=== PATIENT | male | born 1930 | race Caucasian/White ===

== ENCOUNTER 2016-12-16 21:18 | Emergency (ER) | payer MEDICARE ==
[2016-12-16] MEDS ORDERED: Aspirin Low Dose CHEW TAB* 81 MG PO ONE (21:38)
[2016-12-16] MEDS ORDERED: Aspirin Low Dose CHEW TAB* 81 MG ONE (21:39)
[2016-12-16 21:58] LABS: Hematocrit 41 % (42-52); Hemoglobin 13.6 g/dl (14.0-18.0); Mean Corpuscular HGB Conc 34 g/dl (31-36); Mean Corpuscular Hemoglobin 30 pg (27-31); Mean Corpuscular Volume 90 fL (80-94); Mean Platelet Volume 9 um3 (7.4-10.4); Red Cell Distribution Width 14 % (10.5-15)
[2016-12-16 22:14] LABS: BUN/Creatinine Ratio 24.7 (8-20); EGFR African American 49.2 (>60); EGFR Non-African American 38.2 (>60); Globulin 2.6 g/dL (2-4); Potassium 5.1 mmol/L (3.5-5.0); Total Bilirubin 0.4 mg/dL (0.2-1.0); Total Protein 6.6 g/dL (6.4-8.9); Troponin I 0.01 ng/mL (<0.04)
[2016-12-16] MEDS ORDERED: NS 0.9% 1000 ML* 1,000 ML IV ONE (22:16)
--- NOTE | 2016-12-16 22:19 | ED ---
I, Doctor,Rocío, scribed for Kelly Ghotra MD on 12/16/16 at 2134 . HPI Chest Pain - HPI Summary HPI Summary: 86 year old male arrived to [facility] c/o indigestion since 18:00 today. He reports that he began feeling sudden indigestion/chest discomfort at dinner, which he rated as a 4/10 at onset. His pain resolved spontaneously within 45 minutes. He also reports burping up "clear stuff," although his food all stayed down. He denies any diaphoresis or nausea. PT has PMHx of DM and [place], takes a full Asprin every night. His PCP is Dr. Romero. He lives with his ; non-smoker, non- drinker, no drug use. - History of Current Complaint Time Seen by Provider: 12/16/16 21:22 Hx Obtained From: Patient, EMS Onset/Duration: Started Hours Ago - onset at 18:00 today Timing: Lasting Hours - lasted approximately 1 hour Initial Severity: Moderate Current Severity: Moderate Pain Intensity: 4 Pain Scale Used: 0-10 Numeric Chest Pain Location: Mid Sternal Character: Other: - "clear stuff" came up when pt burped Alleviating Factor(s): Spontaneous Resolution Associated Signs and Symptoms: Positive: Chest Pain - chest pain/discomfort, Other: - "indigestion". Negative: Syncope, Fever, Diaphoresis, Nausea - Allergy/Home Medications Allergies/Adverse Reactions: Allergies Allergy/AdvReac Type Severity Reaction Status Date / Time Aloe Allergy Severe Rash Verified 12/19/15 18:52 Bacitracin [From Neosporin] Allergy Intermediate Rash Verified 12/19/15 18:52 Neomycin [From Neosporin] Allergy Intermediate Rash Verified 12/19/15 18:52 Penicillins Allergy Intermediate Rash Verified 12/19/15 18:52 Polymyxin B [From Neosporin] Allergy Intermediate Rash Verified 12/19/15 18:52 PMH/Surg Hx/FS Hx/Imm Hx Endocrine/Hematology History: Reports: Hx Diabetes Denies: Hx Thyroid Disease Cardiovascular History: Reports: Hx Hypertension, Hx Myocardial Infarction Denies: Hx Atrial Fibrillation, Hx Pacemaker/ICD Respiratory History: Denies: Hx Asthma, Hx Chronic Obstructive Pulmonary Disease (COPD) GI History: Denies: Hx Ulcer History: Denies: Hx Dialysis, Hx Renal Disease Musculoskeletal History: Reports: Hx Arthritis - HIPS, HANDS Sensory History: Reports: Hx Cataracts - BILATERAL, Hx Contacts or Glasses - GLASSES, Hx Hearing Aid Opthamlomology History: Reports: Hx Cataracts - BILATERAL, Hx Contacts or Glasses - GLASSES Psychiatric History: Denies: Hx Panic Disorder - Surgical History Surgery Procedure, Year, and Place: CAROTID ARTERY SURGERY(patched 2010 in outside op reports)TONSILS, CATARACTS BILATERAL Hx Anesthesia Reactions: No Infectious Disease History: Reports: Hx Shingles - long time ago Denies: Hx Clostridium Difficile, Hx Hepatitis, Hx Human Immunodeficiency Virus (HIV), Hx of Known/Suspected MRSA - Family History Known Family History: Positive: Other - no FHX of malignant hyperthermia or anesthesia reaction - Social History Lives: With Family - with Alcohol Use: Rare Alcohol Amount: MAYBE 1-2/YR Substance Use Type: Reports: None Smoking Status (MU): Former Smoker Type: Cigarettes Amount Used/How Often: 1PPD 40 YRS Have You Smoked in the Last Year: No Review of Systems Negative: Fever, Skin Diaphoresis Positive: Chest Pain - chest 'discomfort' Positive: Other - indigestion. Negative: Vomiting, Nausea Negative: Syncope All Other Systems Reviewed And Are Negative: Yes Physical Exam Triage Information Reviewed: Yes Vital Signs On Initial Exam: Initial Vitals Temp Pulse Resp BP Pulse Ox 99 F 81 17 139/63 97 12/16/16 21:34 12/16/16 21:34 12/16/16 21:34 12/16/16 21:34 12/16/16 21:34 Vital Signs Reviewed: Yes Appearance: Positive: Well-Appearing, No Pain Distress Skin: Positive: Warm, Skin Color Reflects Adequate Perfusion, Dry Eyes: Positive: EOMI, LEO ENT: Positive: Pharynx normal, TMs normal Neck: Positive: Supple, Nontender Respiratory/Lung Sounds: Positive: Clear to Auscultation, Breath Sounds Present. Negative: Rales, Rhonchi, Wheezes Cardiovascular: Positive: RRR. Negative: Murmur, Rub Abdomen Description: Positive: Nontender, Soft. Negative: Distended, Guarding Bowel Sounds: Positive: Present Musculoskeletal: Positive: Strength/ROM Intact. Negative: Edema Left, Edema Right Neurological: Positive: Sensory/Motor Intact, Alert, Oriented to Person Place, Time, CN Intact II-III Psychiatric: Positive: Normal, Affect/Mood Appropriate Diagnostics - Vital Signs Vital Signs Temp Pulse Resp BP Pulse Ox 12/16/16 21:34 99 F 81 17 139/63 97 - Laboratory Lab Results: Lab Results 12/16/16 12/16/16 12/16/16 Range/Units 21:50 21:50 21:50 WBC 9.0 (3.5-10.8) 10^3/ul RBC 4.50 (4.0-5.4) 10^6/ul Hgb 13.6 L (14.0-18.0) g/dl Hct 41 L (42-52) % MCV 90 (80-94) fL MCH 30 (27-31) pg MCHC 34 (31-36) g/dl RDW 14 (10.5-15) % Plt Count 198 (150-450) 10^3/ul MPV 9 (7.4-10.4) um3 Neut % (Auto) 79.1 (38-83) % Lymph % (Auto) 13.0 L (25-47) % Hardin % (Auto) 5.6 (1-9) % Eos % (Auto) 1.5 (0-6) % Baso % (Auto) 0.8 (0-2) % Absolute Neuts (auto) 7.1 (1.5-7.7) 10^3/ul Absolute Lymphs (auto) 1.2 (1.0-4.8) 10^3/ul Absolute Monos (auto) 0.5 (0-0.8) 10^3/ul Absolute Eos (auto) 0.1 (0-0.6) 10^3/ul Absolute Basos (auto) 0.1 (0-0.2) 10^3/ul Absolute Nucleated RBC 0 10^3/ul Nucleated RBC % 0 Sodium 134 (133-145) mmol/L Potassium 5.1 H (3.5-5.0) mmol/L Chloride 103 (101-111) mmol/L Carbon Dioxide 23 (22-32) mmol/L Anion Gap 8 (2-11) mmol/L BUN 42 H (6-24) mg/dL Creatinine 1.70 H (0.67-1.17) mg/dL Est GFR ( Amer) 49.2 (>60) Est GFR (Non-Af Amer) 38.2 (>60) BUN/Creatinine Ratio 24.7 H (8-20) Glucose 224 H (70-100) mg/dL Lactic Acid 1.8 (0.5-2.0) mmol/L Calcium 10.0 (8.6-10.3) mg/dL Total Bilirubin 0.40 (0.2-1.0) mg/dL AST 16 (13-39) U/L ALT 31 (7-52) U/L Alkaline Phosphatase 87 (34-104) U/L Troponin I 0.01 (<0.04) ng/mL Total Protein 6.6 (6.4-8.9) g/dL Albumin 4.0 (3.2-5.2) g/dL Globulin 2.6 (2-4) g/dL Albumin/Globulin Ratio 1.5 (1-3) Result Diagrams: 12/16/16 21:50 12/16/16 21:50 Lab Statement: Any lab studies that have been ordered have been reviewed, and results considered in the medical decision making process. - EKG 21:22 Cardiac Rate: NL - 83 bpm EKG Rhythm: Sinus Rhythm - normal Ectopy: None EKG Interpretation: inferior Qs, otherwise normal Chest Pain Course/Dx - Course Course Of Treatment: 86 yo male with chest discomfort and one time burp/ spitting up at 530 tonight. First trop and ekg normal, pt not willing to come in for obv will get 2nd trop at 1130 - Diagnoses Provider Diagnoses: Chest pain Discharge - Discharge Plan Condition: Stable Disposition: OTHER Discharge Disposition Comment: final disposition to be decided by Dr. Vera The documentation as recorded by the altaibDoctor campuzano Tahera accurately reflects the service I personally performed and the decisions made by me, Kelly Ghotra MD.
--- NOTE | 2016-12-16 22:25 | RAD ---
INDICATION: Chest pain COMPARISON: None 2011 TECHNIQUE: An AP portable view obtained at 2155 hours is submitted. FINDINGS: Bones/Soft Tissues: There are no acute bony findings. Cardiomediastinal: The cardiomediastinal silhouette is normal. Lungs: There are no infiltrates. There is mild chronic basilar interstitial change Pleura: There are no pleural effusions. Other: None IMPRESSION: NO ACTIVE DISEASE.
[2016-12-17 00:33] VITALS: BP 134/70
--- NOTE | 2016-12-17 20:00 | ED ---
I, Shanu Mckenzie, scribed for Micky Vera MD on 12/17/16 at 0015 . Progress - Progress Note Progress Note: Patient was signed out by Dr. Ghotra at shift change pending second troponin. The patient and family are unwilling to have the patient stay overnight for observation. They will sign out AMA. - Results/Orders Results/Orders: Trop 0.01 at 23:05 is 0.01. Re-Evaluation - Re-Evaluation First Eval Re-Evaluation Time: 00:15 Comment: Risks and benefits of leaving AMA discussed with the patient and family. Labs reviewed. Patient states that his pain resolved 2 hours ago and had not returned. Course/Dx - Course Course Of Treatment: Patient was signed out by Dr. Ghotra at shift change pending second troponin. The patient and family are unwilling to have the patient stay overnight for observation. They will sign out AMA. The risks of doing so were discussed in great detail with the patient and family, but they have elected to do so anyway. - Diagnoses Provider Diagnoses: Chest pain, unspecified, Left against medical advice Discharge - Discharge Plan Condition: Stable Disposition: AGAINST MEDICAL ADVICE Patient Education Materials: Chest Pain (ED) Referrals: Stephany Cobos [Primary Care Provider] - The documentation as recorded by the Jonah zaragoza Billy accurately reflects the service I personally performed and the decisions made by , Micky Vera MD.
--- NOTE | 2016-12-19 15:39 | ED ---
I, Rocío Galvez, scribed for Kelly Ghotra MD on 12/16/16 at 2234 . Progress - Progress Note Progress Note: First Re-Eval at 22:30 - Informed pt of lab results and discussed plan of care with him. - Results/Orders Results/Orders: 21:50 - Troponin I - 0.01 - EKG/XRAY/CT XRAY: chest - Radiologist IMPRESSION: NO ACTIVE DISEASE. Course/Dx - Course Course Of Treatment: 86 yo male with chest discomfort and one time burp/ spitting up at 530 tonight. First trop and ekg normal, pt not willing to come in for obv will get 2nd trop at 1130 - Diagnoses Provider Diagnoses: Chest pain The documentation as recorded by the scribe, Rocío Galvez accurately reflects the service I personally performed and the decisions made by me, Kelly Ghotra MD.
== END 2016-12-17 00:36 | disposition left against medical advice (07) ==
LOC: ED 21:18
DX: R07.9 Chest pain, unspecified (principal); Z53.21 Procedure and treatment not carried out due to patient leaving prior to being seen by health care provider
CPT/HCPCS: 36415; 71010; 80053; 83605; 84484; 85025; 93005; 99283; A9270-GY

== ENCOUNTER 2017-10-17 04:46 | Emergency (ER) | payer MEDICARE ==
--- OUTSIDE RECORDS SUMMARY | 2017-10-17 04:52 | XMS REPORT ---
:1930 External Reference #:[id number] Author Organization [facility] Address [address] [place] [address] Phone [phone] Care Team Providers Name Role Phone Diya Nieves M.D. 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 Active Onset: 01/02/2011 Pure hypercholesterolemia Addy Francois M.D. Active Onset: 01/02/2011 Essential hypertension Addy Francois M.D. Active Family History Date Family Member(s) Problem(s) Comments : (age 83 Years) Father due to Natural Causes : (age 65 Years) Mother due to Heart Disease cancer Social History Type Date Description Comments ETOH Use Rarely consumes alcohol Smoking 1979 Patient is a former smoker Smoked 1ppd and cigars for 35 yrs Recreational Drug Use Never Used Drugs Allergies, Adverse Reactions, Alerts Date Description Reaction Status Severity Comments 01/02/2011 Penicillin rash active 01/02/2011 Neosporin rash active 01/02/2011 Polysporin rash active 01/29/2011 Clams rash active 07/01/2014 Aloe Contact dermatitis active Medications Medication Date Status Form Strength Qnty SIG Indications Ordering Provider Joseph / Active Solution 100Unit/ML 40-60 Unknown 0000 units as directed Metoprolol / Active Tablets 25mg 1/2 tab Unknown Tartrate 0000 bid Aspirin Ec / Active Tablets DR 325mg qd Unknown 0000 Tamsulosin HCL / Active Capsules 0.4mg qd Unknown 0000 Tylenol / Active Tablets ER 650mg prn Unknown Arthritis Pain 0000 Meclizine HCL / Active Tablets 25mg 1/2 Unknown 0000 tablet at hs Fluticasone / Active Suspension 50mcg/Act 2 sprays Unknown Propionate 0000 qd Finasteride / Active Tablets 5mg qd Unknown 0000 Areds / Active 2 tablets Unknown 0000 qd Atorvastatin / Active Tablets 10mg qd Unknown Calcium 0000 Vitamin D / Active Tablets 1000Unit qd Unknown 0000 Benefiber / Active qd Unknown 0000 Victoza / Active Solution 18mg/3ML qd Unknown 0000 Pen-Inject Metformin HCL / Active Tablets 1000mg qd Unknown 0000 Doxycycline / Active Capsules 100mg qod Unknown Hyclate 0000 Nitrostat / Active Tablets Sub 0.4mg as needed Unknown 0000 Hydrocodone-Ignacio / Active Tablets 5-325mg as needed Unknown taminophen 0000 Invokana / Active Tablets 300mg 1 Unknown 0000 Vesicare / Active Tablets 5mg 1 by Unknown 0000 mouth every night at bedtime Zofran / Active Tablets 4mg every 8 Unknown 0000 hours as needed, nausea Amlodipine / Active Capsules 10-40mg 1 by Unknown Besylate/Benaze 0000 mouth pril HCL every day Cetirizine HCL / Active Tablets 10mg 1 by Unknown 0000 mouth every day Diclofenac / Active gel qd Unknown Sodium 0000 Lipoflavonoid / Active Tablets with Unknown 0000 meals Glyburide/Metfo / Hx Tablets 5-500mg 1 am and Unknown rmin HCL 0000 - 2 pm 2013 Caduet / Hx Tablets 5-10mg qd Unknown 0000 - 2011 Pepcid ac / Hx Tablets 10mg prn Unknown 0000 - 2015 Plavix / Hx Tablets 75mg 30tab 1 po qd Unknown 0000 - s 2010 Amlodipine 00/00/ Hx Tablets 5mg 30tab qd Unknown Besylate 0000 - s 2015 Aleve 00/00/ Hx Tablets 220mg 2 tablets Unknown 0000 - am 2015 Vital Signs Date Vital Result Comment 08/28/2017 BP Systolic Right Arm 122 mmHg BP Diastolic Right Arm 60 mmHg Height 66 inches 5'6" 08/23/2016 BP Systolic Right Arm 150 mmHg BP Diastolic Right Arm 70 mmHg BP Systolic Left Arm 150 mmHg BP Diastolic Left Arm 70 mmHg Height 66 inches 5'6" Weight 207.00 lb Weight in kg's 93.895 BMI (Body Mass Index) 33.4 kg/m2 Pain Level 0 08/17/2015 BP Systolic Right Arm 120 mmHg BP Diastolic Right Arm 80 mmHg BP Systolic Left Arm 120 mmHg BP Diastolic Left Arm 80 mmHg Height 67 inches 5'7" Weight 207.00 lb Weight in kg's 93.895 BMI (Body Mass Index) 32.4 kg/m2 Pain Level 0 07/01/2014 BP Systolic Right Arm 120 mmHg BP Diastolic Right Arm 60 mmHg BP Systolic Left Arm 130 mmHg BP Diastolic Left Arm 60 mmHg Height 67 inches 5'7" Weight 230.00 lb Weight in kg's 104.328 BMI (Body Mass Index) 36.0 kg/m2 Pain Level 0 06/25/2013 BP Systolic Right Arm 180 mmHg BP Diastolic Right Arm 80 mmHg BP Systolic Left Arm 180 mmHg BP Diastolic Left Arm 80 mmHg Weight 230.00 lb Weight in kg's 104.328 Pain Level 5 04/23/2012 BP Systolic Right Arm 130 mmHg BP Diastolic Right Arm 60 mmHg BP Systolic Left Arm 130 mmHg BP Diastolic Left Arm 60 mmHg Height 67 inches 5'7" Weight 230.00 lb Weight in kg's 104.328 BMI (Body Mass Index) 36.0 kg/m2 Pain Level 0 10/04/2011 BP Systolic Right Arm 170 mmHg BP Diastolic Right Arm 90 mmHg BP Systolic Left Arm 190 mmHg BP Diastolic Left Arm 90 mmHg Height 67 inches 5'7" Weight 230.00 lb Weight in kg's 104.328 BMI (Body Mass Index) 36.0 kg/m2 03/28/2011 BP Systolic Right Arm 190 mmHg BP Diastolic Right Arm 80 mmHg BP Systolic Left Arm 180 mmHg BP Diastolic Left Arm 70 mmHg Height 67 inches 5'7" Weight 230.00 lb Weight in kg's 104.328 BMI (Body Mass Index) 36.0 kg/m2 02/08/2011 BP Systolic Left Arm 150 mmHg BP Diastolic Left Arm 70 mmHg Heart Rate 78 /min Height 66 inches 5'6" Weight 230.00 lb Weight in kg's 104.328 BMI (Body Mass Index) 37.1 kg/m2 01/11/2011 BP Systolic Right Arm 134 mmHg BP Diastolic Right Arm 70 mmHg Heart Rate 62 /min Height 66 inches 5'6" Weight 230.00 lb Weight in kg's 104.328 BMI (Body Mass Index) 37.1 kg/m2 01/02/2011 BP Systolic Right Arm 150 mmHg BP Diastolic Right Arm 70 mmHg BP Systolic Left Arm 140 mmHg BP Diastolic Left Arm 70 mmHg Heart Rate 68 /min Height 66 inches 5'6" Weight 230.00 lb Weight in kg's 104.328 BMI (Body Mass Index) 37.1 kg/m2 Results Test Date Test Result H/L Range Note Xray 08/28/2017 Carotid Ultrasound Bilateral <pending> Xray 01/02/2011 Cta Head <pending> Cta Neck <pending> Procedures Date CPT Code Description Status 08/28/2017 36848 Duplex Scan Extracranial Arteries, Complete Bilateral Completed Study 08/23/2016 78020 Duplex Scan Extracranial Arteries, Complete Bilateral Completed Study 08/17/2015 58737 Duplex Scan Extracranial Arteries, Complete Bilateral Completed Study 07/01/2014 08036 Duplex Scan Extracranial Arteries, Complete Bilateral Completed Study 06/25/2013 85256 Duplex Scan Extracranial Arteries, Complete Bilateral Completed Study 04/23/2012 98865 Duplex Scan Extracranial Arteries, Complete Bilateral Completed Study 10/04/2011 59122 Duplex Scan Extracranial Arteries, Complete Bilateral Completed Study 03/28/2011 42380 Duplex Scan Extracranial Arteries, Complete Bilateral Completed Study 01/25/2011 40022 Thromboendarterectomy Carotid/Vertebral/Subclav By Neck Completed Incision Encounters Type Date Location Provider CPT E/M Dx Office Visit 08/23/2016 10:30a Main Office Estela Etienne 35534 I65.23 Z48.812 Office Visit 08/17/2015 12:30p Main Office Kristy Guidry N.P. [id number] I65.23 Office Visit 01/11/2011 11:00a Main Office Addy Francois M.D. 75982 433.10 Office Visit 01/02/2011 2:30p Main Office Addy Francois M.D. 80610 433.10 Plan of Care Future Appointment(s):08/28/2018 10:30 am - Addy Francois M.D. at Main Kbumda0208/28/2018 10:00 am - Vascular Lab at Main Lnelir8408/28/2017 - Addy Francois M.D.Z48.812 [facility]:Carotid Ultrasound RightFollow up:1 YEAR OV/US/ CAROTID RIGHT/
[2017-10-17] MEDS ORDERED: Pantoprazole IV* 40 MG IV ONE (05:27)
[2017-10-17] MEDS ORDERED: Al Hydrox/Mg Hydrox/Simet LIQ* 30 ML UDC PO ONE (05:27)
[2017-10-17] MEDS ORDERED: Lidocaine 2% VISCOUS* 15 ML UDC PO ONE (05:28)
[2017-10-17 05:45] LABS: ABS Basophils 0 10^3/ul (0-0.2); ABS Eosinophils 0.1 10^3/ul (0-0.6); ABS Monocytes 0.7 10^3/ul (0-0.8); ABS Neutrophils 8.5 10^3/ul (1.5-7.7); ABS Nucleated RBC 0 10^3/ul; Eosinophil % 0.8 % (0-6); Hematocrit 38 % (42-52); Hemoglobin 12.7 g/dl (14.0-18.0); Mean Corpuscular HGB Conc 33 g/dl (31-36); Mean Corpuscular Hemoglobin 31 pg (27-31); Mean Corpuscular Volume 93 fL (80-94); Mean Platelet Volume 9 um3 (7.4-10.4); Nucleated Red Blood Cells % 0; Platelet Count 209 10^3/ul (150-450); Red Blood Count 4.13 10^6/ul (4.0-5.4); Red Cell Distribution Width 14 % (10.5-15); White Blood Count 10.3 10^3/ul (3.5-10.8)
[2017-10-17] MEDS ORDERED: Ondansetron INJ* 2 MG/ML VIAL ONE (05:49)
[2017-10-17] MEDS ORDERED: Ondansetron INJ* 2 MG/ML VIAL IV ONE (05:51)
[2017-10-17 06:02] LABS: EGFR Non-African American 34.2 (>60)
[2017-10-17 06:06] LABS: INR 0.84 (0.77-1.02)
--- NOTE | 2017-10-17 07:09 | ED ---
Magalie Norton Gabriel, scribed for Usama Winston MD on 10/17/17 at 0541 . HPI Chest Pain - HPI Summary HPI Summary: This patient is a 86 year old M BIBA to [facility] accompanied by his family with a chief complaint of CP since 1916 yesterday. The patient rates the constant pain 2/10 in severity. Patient reports burping. Patient denies n/v/d and diaphoresis. Pt states he feels like he needs to burp. He had similar episode a week ago for a few hours and it went away. Takes ASA daily. Hx of MD 1992. Given ASA and NTG by EMS. - History of Current Complaint Chief Complaint: EDChestPainROMI Time Seen by Provider: 10/17/17 04:59 Hx Obtained From: Patient Onset/Duration: Still Present Timing: Constant Pain Intensity: 2 Pain Scale Used: 0-10 Numeric Chest Pain Location: Diffuse Chest Pain Radiates: No Associated Signs and Symptoms: Negative: Diaphoresis, Nausea - Allergy/Home Medications Allergies/Adverse Reactions: Allergies Allergy/AdvReac Type Severity Reaction Status Date / Time MS Aloe [Aloe] Allergy Severe Rash Verified 12/19/15 18:52 MS Bacitracin Allergy Intermediate Rash Verified 12/19/15 18:52 [From Neosporin] MS Neomycin [From Neosporin] Allergy Intermediate Rash Verified 12/19/15 18:52 MS Penicillins [Penicillins] Allergy Intermediate Rash Verified 12/19/15 18:52 MS Polymyxin B Allergy Intermediate Rash Verified 12/19/15 18:52 [From Neosporin] PMH/Surg Hx/FS Hx/Imm Hx Endocrine/Hematology History: Reports: Hx Diabetes Denies: Hx Thyroid Disease Cardiovascular History: Reports: Hx Hypertension, Hx Myocardial Infarction Denies: Hx Atrial Fibrillation, Hx Pacemaker/ICD Respiratory History: Denies: Hx Asthma, Hx Chronic Obstructive Pulmonary Disease (COPD) GI History: Denies: Hx Ulcer History: Denies: Hx Dialysis, Hx Renal Disease Musculoskeletal History: Reports: Hx Arthritis - HIPS, HANDS Sensory History: Reports: Hx Cataracts - BILATERAL, Hx Contacts or Glasses - GLASSES, Hx Hearing Aid Opthamlomology History: Reports: Hx Cataracts - BILATERAL, Hx Contacts or Glasses - GLASSES Psychiatric History: Denies: Hx Panic Disorder - Surgical History Surgery Procedure, Year, and Place: CAROTID ARTERY SURGERY(patched 2011 in outside op reports)TONSILS, CATARACTS BILATERAL Hx Anesthesia Reactions: No Infectious Disease History: No Infectious Disease History: Reports: Hx Shingles - long time ago Denies: Hx Clostridium Difficile, Hx Hepatitis, Hx Human Immunodeficiency Virus (HIV), Hx of Known/Suspected MRSA, Traveled Outside the [place] in Last 30 Days - Family History Known Family History: Positive: Cardiac Disease, Hypertension, Other - no FHX of malignant hyperthermia or anesthesia reaction - Social History Alcohol Use: Rare Alcohol Amount: MAYBE 1-2/YR Substance Use Type: Reports: None Smoking Status (MU): Former Smoker Type: Cigarettes Amount Used/How Often: 1PPD 40 YRS Have You Smoked in the Last Year: No Review of Systems Negative: Skin Diaphoresis Positive: Chest Pain Negative: Vomiting, Diarrhea, Nausea All Other Systems Reviewed And Are Negative: Yes Physical Exam - Summary Physical Exam Summary: VITAL SIGNS: Reviewed. GENERAL: Patient is a well-developed and nourished male who is lying comfortable in the stretcher. Patient is not in any acute respiratory distress. HEAD AND FACE: No signs of trauma. No ecchymosis, hematomas or skull depressions. No sinus tenderness. EYES: PERRLA, EOMI x 2, No injected conjunctiva, no nystagmus. EARS: Ear canals and tympanic membranes are within normal limits. MOUTH: Oropharynx within normal limits. NECK: Supple, trachea is midline, no adenopathy, no JVD, no carotid bruit, no c- spine tenderness, neck with full ROM. CHEST: Symmetric, no tenderness at palpation LUNGS: Clear to auscultation bilaterally. No wheezing or crackles. CVS: Regular rate and rhythm, S1 and S2 present, no murmurs or gallops appreciated. ABDOMEN: Soft, non-tender. No signs of distention. No rebound no guarding, and no masses palpated. Bowel sounds are normal. EXTREMITIES: FROM in all major joints, no edema, no cyanosis or clubbing. NEURO: Alert and oriented x 3. No acute neurological deficits. Speech is normal and follows commands. SKIN: Dry and warm Triage Information Reviewed: Yes Vital Signs On Initial Exam: Initial Vitals Temp Pulse Resp BP Pulse Ox 98.1 F 91 18 137/64 97 10/17/17 04:53 10/17/17 04:53 10/17/17 04:53 10/17/17 04:53 10/17/17 04:53 Vital Signs Reviewed: Yes Diagnostics - Vital Signs Vital Signs Temp Pulse Resp BP Pulse Ox 10/17/17 04:53 98.1 F 91 18 137/64 97 - Laboratory Lab Results: Lab Results 10/17/17 10/17/17 10/17/17 Range/Units 05:05 05:05 05:05 WBC 10.3 (3.5-10.8) 10^3/ul RBC 4.13 (4.0-5.4) 10^6/ul Hgb 12.7 L (14.0-18.0) g/dl Hct 38 L (42-52) % MCV 93 (80-94) fL MCH 31 (27-31) pg MCHC 33 (31-36) g/dl RDW 14 (10.5-15) % Plt Count 209 (150-450) 10^3/ul MPV 9 (7.4-10.4) um3 Neut % (Auto) 82.5 (38-83) % Lymph % (Auto) 10.0 L (25-47) % [place] % (Auto) 6.4 (1-9) % Eos % (Auto) 0.8 (0-6) % Baso % (Auto) 0.3 (0-2) % Absolute Neuts (auto) 8.5 H (1.5-7.7) 10^3/ul Absolute Lymphs (auto) 1.0 (1.0-4.8) 10^3/ul Absolute Monos (auto) 0.7 (0-0.8) 10^3/ul Absolute Eos (auto) 0.1 (0-0.6) 10^3/ul Absolute Basos (auto) 0 (0-0.2) 10^3/ul Absolute Nucleated RBC 0 10^3/ul Nucleated RBC % 0 INR (Anticoag Therapy) 0.84 (0.77-1.02) APTT 30.5 (26.0-36.3) seconds Sodium 137 (133-145) mmol/L Potassium 5.0 (3.5-5.0) mmol/L Chloride 110 (101-111) mmol/L Carbon Dioxide 19 L (22-32) mmol/L Anion Gap 8 (2-11) mmol/L BUN 47 H (6-24) mg/dL Creatinine 1.87 H (0.67-1.17) mg/dL Est GFR ( Amer) 44.0 (>60) Est GFR (Non-Af Amer) 34.2 (>60) BUN/Creatinine Ratio 25.1 H (8-20) Glucose 188 H (70-100) mg/dL Calcium 9.3 (8.6-10.3) mg/dL Magnesium 2.2 (1.9-2.7) mg/dL Total Bilirubin 0.40 (0.2-1.0) mg/dL AST 15 (13-39) U/L ALT 16 (7-52) U/L Alkaline Phosphatase 94 (34-104) U/L Troponin I 0.01 (<0.04) ng/mL Total Protein 6.3 L (6.4-8.9) g/dL Albumin 3.9 (3.2-5.2) g/dL Globulin 2.4 (2-4) g/dL Albumin/Globulin Ratio 1.6 (1-3) Result Diagrams: 10/17/17 05:05 10/17/17 05:05 Lab Statement: Any lab studies that have been ordered have been reviewed, and results considered in the medical decision making process. - Radiology CXR Radiology Interpretation Completed By: ED Physician - EKG 0501 Cardiac Rate: NL EKG Rhythm: Sinus Rhythm - at 83 BPM EKG Interpretation: Normal axis. Normal interval. No ischemic changes Chest Pain Course/Dx - Course Assessment/Plan: This patient is a 86 year old M BIBA to [facility] accompanied by his family with a chief complaint of CP since 1915 yesterday. The patient rates the constant pain 2/10 in severity. Patient reports burping. Patient denies n/v/ d and diaphoresis. Pt states he feels like he needs to burp. He had similar episode a week ago for a few hours and it went away. Takes ASA daily. Hx of MD 1992. Given ASA and NTG by EMS. An EKG reveals Normal axis. Normal interval. No ischemic changes. CXR reveals, no acute process. Test results with no significant abnormalities. In the ED course the patient was given GI cocktail. Patient is signed out to Dr. Villalta, pending disposition, awaiting troponin. - Diagnoses Provider Diagnoses: Chest pain Discharge - Discharge Plan Condition: Stable Disposition: OTHER Discharge Disposition Comment: Pt will be signed out to Dr. Villalta Referrals: Stephany Cobos [Primary Care Provider] - The documentation as recorded by the Magalie zaragoza Gabriel accurately reflects the service I personally performed and the decisions made by me, Usama Winston MD.
--- NOTE | 2017-10-17 07:21 | RAD ---
INDICATION: Chest pain COMPARISON: most recent comparison chest x-rays dated December 16, 2016 TECHNIQUE: Single AP portable view of the chest was obtained. FINDINGS: Image quality is compromised due to the relative inferiority of a portable chest x-ray. The heart and mediastinum exhibit normal size and contour. The lungs are grossly clear. There is no evidence of a large pleural effusion. Visualized bones are normal for the patient's age. IMPRESSION: No radiographic evidence for acute cardiopulmonary abnormality on this portable chest x-ray.
[2017-10-17 10:09] VITALS: BP 124/77
== END 2017-10-17 10:08 ==
LOC: ED 04:46
DX: R07.9 Chest pain, unspecified (principal); Z87.891 Personal history of nicotine dependence
CPT/HCPCS: 36415; 71045; 80053; 83735; 84484; 85025; 85610; 85730; 93005; 96374; 96375; 99284; A9270-GY; J2405

== ENCOUNTER 2017-10-17 10:58 | Observation (INO) | payer MEDICARE ==
[2017-10-17] MEDS ORDERED: Dextrose 50% Syringe 50 ML* 25 GM/50 ML SYRINGE IV PUSH PRN (13:07)
[2017-10-17] MEDS ORDERED: Morphine INJ* 2 MG/ML 1 ML CARPUJECT IV PRN (13:16)
[2017-10-17] MEDS ORDERED: Nitroglycerin TAB 0.4 MG* 0.4 MG TAB SL PRN (13:18)
[2017-10-17] MEDS ORDERED: Insulin GLARGINE(*) 1 UNITS UNIT SUBCUT SCH (14:00)
--- NOTE | 2017-10-17 14:29 | RAD ---
INDICATION: Dysphagia. COMPARISON: There are no prior studies available for comparison. Technique: A single contrast barium swallow exam was performed in the upright position. Approximately 2.4 minutes of intermittent fluoroscopic guidance were used during the exam. Findings: The swallowing mechanism was intact. The esophagus is diffusely distended. There are multiple intraluminal filling defects likely representing food material. There is decreased esophageal peristalsis with slow clearing consistent with presbyesophagus. No hiatal hernia or gastroesophageal reflux was noted. IMPRESSION: THE ESOPHAGUS IS DIFFUSELY DISTENDED WITH DECREASED PERISTALSIS AND SLOW CLEARING. THERE ARE MULTIPLE INTRALUMINAL FILLING DEFECTS LIKELY REPRESENTING FOOD DEBRIS WHICH LIMITS THE STUDY. THE POSSIBILITY OF AN UNDERLYING MASS CANNOT BE EXCLUDED. RECOMMEND ENDOSCOPY FOR FURTHER EVALUATION. CPT II Codes: 6045F
[2017-10-17] MEDS: NS 0.9% 1000 ML* 1,000 ML IV SCH (14:34)
[2017-10-17] MEDS: Heparin VIAL(*) 5000 UNITS/ML VIAL (FIVE THOUSAND) SUBCUT SCH ×2 (14:34→22:31)
[2017-10-17] MEDS: Insulin LISPRO* 1 UNITS UNIT SUBCUT SCH (18:10)
--- NOTE | 2017-10-17 19:53 | HP ---
ADDENDUM NOW INCLUDED ON THIS REPORT HISTORY AND PHYSICAL: DATE OF ADMISSION: 10/17/17 PRIMARY CARE PROVIDER: Stephany Cobos NP, from [place], [place]. CHIEF COMPLAINT: Problems with swallowing. 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 Lott. He stated that last night, after dinner, he also had problems with burping, belching, and sensation of fullness in his chest. He came into the emergency department for evaluation and here he was ruled out for acute coronary syndrome with negative troponins. He was discharged and waiting in the waiting area in the emergency department for his daughter to pick him up when he had a couple of sips of water and he regurgitated it. He stated that he feels like he is unable to swallow anything. The sensation is similar to the sensation in 2009 when his esophagus was dilated. He is going to be placed on overnight observation with the diagnosis of dysphagia. PAST MEDICAL HISTORY: 1. Chronic kidney disease, stage 3. The patient is not aware of that, but from medical records, he had an elevated creatinine in 2017. 2. History of peripheral neuropathy. 3. BPH. 4. Diabetes, type 2. 5. Hypertension. 6. History of rosacea, on doxycycline every other day. 7. History of VT in 1992, at [facility] in [place]. The patient had cardiac catheterization, but no stenting. 8. Left carotid endarterectomy in the past. MEDICATIONS: Outpatient medications include: 1. Wheat dextrin 1 tablet daily. 2. Amlodipine/benazepril 5/10 mg daily. 3. Voltaren Gel 1 application daily. 4. Doxycycline 100 mg every other day. 5. Vitamin D3 1000 units daily. 6. Zyrtec 10 mg daily. 7. Invokana 300 mg daily. 8. Lipitor 10 mg daily. 9. Aspirin 325 mg daily. 10. VESIcare 2.5 mg daily. 11. Nitroglycerin on a p.r.n. basis. 12. Meclizine 12.5 mg at bedtime. 13. Victoza 1.2 mg subcutaneously daily. 14. [place] 5/325 mg every 6 hours p.r.n. 15. Flonase nasal spray 2 sprays both nostrils daily. 16. Proscar 5 mg daily. 17. PreserVision 2 capsules daily. 18. Flomax 0.4 mg daily. 19. Zofran 4 mg daily. 20. Omeprazole 40 mg daily. 21. Insulin Lantus 40 to 60 units at night depending on the patient's sugars during the day. ALLERGIES: PENICILLIN and NEOSPORIN cause rash. FAMILY HISTORY: Positive for mother who in her 60s with history of heart valve issue. Father who with history of Alzheimer's at 79. SOCIAL HISTORY: The patient denies any alcohol or drug use. He quit smoking in 1975. He is retired and lives with his , Celena Irvin, who is his surrogate. REVIEW OF SYSTEMS: Please see history of present illness. 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 His bilateral finger numbness is due to neuropathy that has also had been chronic. He has had no problems eating his meals after yesterday's dinner, which he actually ate in full when he started feeling pressure in his chest. Currently, he denies any nausea but he does not feel comfortable eating. The patient denies any weight loss. All the remaining 12 systems were reviewed with the patient and were otherwise negative. PHYSICAL EXAMINATION GENERAL: This is a very pleasant 86-year-old male, who is in no acute distress. Alert, awake, and oriented x3. VITAL SIGNS: Blood pressure of 146/65, heart rate of 99 and regular, respiratory rate 23, oxygen saturation 93% on room air, and temperature of 97. HEENT: Head: Atraumatic, normocephalic. Eyes: Pupils equal and reactive to light and accommodation. Oropharynx clear. Mucosa moist. NECK: Supple. No JVD. No bruits bilaterally. RESPIRATORY: Clear to auscultation bilaterally. CARDIOVASCULAR: Regular rate and rhythm. No murmur. ABDOMEN: Soft, nontender. Bowel sounds present in all 4 quadrants. EXTREMITIES: There is trace bilateral ankle edema. Pulses +2 bilaterally. No clubbing or cyanosis. NEURO: Speech clear. Cranial nerves II through XII grossly intact. Motor strength is 5/5 bilaterally. PSYCHIATRIC: Oriented x3 with no evidence of anxiety or depression. DIAGNOSTIC STUDIES/LAB DATA: Obtained on his initial ED stay include: White blood cell count 10.3, hemoglobin 12.7, hematocrit 38, and platelets of 209. Sodium was 137, potassium 5.0, chloride 110, carbon dioxide 19, anion gap of 8, creatinine 1.87. Liver function tests were unremarkable. Troponin of 0.01. The patient's EKG showed normal sinus rhythm with the heart rate of 83 beats per minute with minimal ST changes in lead III and aVF. Those changes were comparable from EKG from 2017. The patient's portable chest x-ray, impression: "No radiographic evidence of acute cardiopulmonary abnormality on this portable chest x-ray." ASSESSMENT AND PLAN: 1. In regards to the patient's dysphagia, esophagogram is going to be obtained. Gastroenterology consult was requested. For the time being, the patient is going to be n.p.o., on IV fluids. His p.o. medications are going to be held. 2. In regards to the patient's diabetes, the patient is going to be placed on insulin sliding scale every [address] the patient on small dose of insulin Lantus. His outpatient diabetic medications are going to be held. 3. In regards to the patient's chronic kidney disease, stage 3, his creatinine is slightly worse than in 2017. We will continue intravenous hydration and repeat basic metabolic panel in the morning. 4. Although the patient's substernal chest pressure is likely related to gastrointestinal symptoms, the patient is going to be continued on telemetry monitored bed. His troponins had been negative throughout his hospital stay. I will obtain another troponin midday today. 5. The patient's code status is full and his surrogate is his . TIME SPENT: Approximately 65 minutes was spent on admission of this patient, more than half that time was spent [id number] with the patient during the interview and physical exam. [id number]/CPS #: [id number]/CPS #: [id number] [place]
--- NOTE | 2017-10-17 19:53 | HP ---
HISTORY AND PHYSICAL: ADDENDUM: Please note the patient has a history of left carotid endarterectomy in the past. [id number]/[facility] #: [id number] MTDD
[2017-10-18] MEDS: Insulin LISPRO* 1 UNITS UNIT SUBCUT SCH ×2 (02:42→05:15)
[2017-10-18] MEDS: NS 0.9% 1000 ML* 1,000 ML IV SCH (04:57)
[2017-10-18 05:10] LABS: ABS Basophils 0 10^3/ul (0-0.2); ABS Eosinophils 0.1 10^3/ul (0-0.6); ABS Lymphocytes 1.3 10^3/ul (1.0-4.8); ABS Neutrophils 13.2 10^3/ul (1.5-7.7); ABS Nucleated RBC 0 10^3/ul; Eosinophil % 0.5 % (0-6); Hematocrit 32 % (42-52); Hemoglobin 10.8 g/dl (14.0-18.0); Lymphocyte % 8.1 % (25-47); Mean Corpuscular HGB Conc 34 g/dl (31-36); Mean Corpuscular Hemoglobin 31 pg (27-31); Mean Corpuscular Volume 93 fL (80-94); Mean Platelet Volume 9 um3 (7.4-10.4); Nucleated Red Blood Cells % 0; Platelet Count 176 10^3/ul (150-450); Red Blood Count 3.45 10^6/ul (4.0-5.4); Red Cell Distribution Width 15 % (10.5-15); White Blood Count 15.6 10^3/ul (3.5-10.8)
[2017-10-18] MEDS: Heparin VIAL(*) 5000 UNITS/ML VIAL (FIVE THOUSAND) SUBCUT SCH (05:13)
--- NOTE | 2017-10-18 05:19 | CONS ---
GI CONSULTATION NOTE: DATE OF CONSULT: 10/17/17 REASON FOR CONSULT: Worsening dysphagia. HISTORY OF PRESENT ILLNESS: An 86-year-old gentleman recently presented to the emergency room with chest pressure and acute coronary syndrome was ruled out. He also started complaining of worsening of dysphagia and was not even able to tolerate liquids. He reports that he has been having progressively worsening dysphagia for almost a year. He underwent an EGD by Dr. Lott on , which was unremarkable. Empirical GE junction dilation was performed with the scope balloon with 18 mm balloon without any mucosal effect there. He reports that his symptoms did not improve after that endoscopy. The patient reports that he feels that dysphagia is worse with liquids and solids. He keeps on regurgitating liquid and frothy material. No history of weight loss. Esophagram was performed during this admission. Today, which revealed diffusely distended esophagus with decreased peristalsis and slow clearing from the esophagus. There were also some filling defects, apparently food debris in the esophagus. PAST MEDICAL HISTORY: Coronary artery disease and diabetes. PAST SURGICAL HISTORY: 1. Carotid endarterectomy several years ago. 2. EGD on 06/20/[address] Lott. ALLERGIES: NEOMYCIN, PENICILLIN and POLYMYXIN. FAMILY HISTORY: Coronary artery disease. SOCIAL HISTORY: No history of alcohol abuse or smoking or illicit drug use. REVIEW OF SYSTEMS: No complaint of fever, chills, weight loss. He complains of chest discomfort. PHYSICAL EXAM: An elderly gentleman lying in bed comfortably without any acute distress. Vital Signs: Reviewed and stable. Skin: Warm, dry, without rash. Neck: Supple. No JVD. No lymphadenopathy. Chest: Clear to auscultation. CVS : S1, S2 regular. Abdomen: Obese, but nontender, no organomegaly appreciated. PHARMACY INTAKE TECHNICIAN: Alert, awake, and oriented to time, place, and person. Extremities without edema, clubbing, cyanosis. DIAGNOSTIC STUDIES/LAB DATA: Lab work was reviewed and showed mild anemia with hemoglobin of 12.7. INR was normal. Chemistry showed renal insufficiency with BUN and creatinine of 47 and 1.87. Esophagram on 10/17/17 revealed diffusely distended esophagus with decreased peristalsis and slow clearing along with multiple intraluminal filling defects representing food particles and debris. ASSESSMENT: An 86-year-old gentleman with progressively worsening dysphagia to both liquids and solids, but more to liquids with complaint of regurgitation, chest discomfort, and chest pressure. His previous EGD was inconclusive and empirical dilation with 18 mm balloon of the GE junction did not improve the symptoms. Esophagram is suggestive of dysmotility and likely achalasia. RECOMMENDATIONS: 1. The patient was advised that he will require esophageal manometry study to confirm the diagnosis of achalasia before further treatment. Unfortunately the equipment is only available as outpatient. One option is to try to feed him and if he is able to tolerate soft diet, discharge him home and undergo manometry study as an outpatient and then further treatment either Botox injection, Heller's myotomy or per oral endoscopic myotomy (POEM), if achalasia is confirmed. 2. If the patient is not able to tolerate diet and keeps on regurgitating, then we may have to empirically inject Botox in the GE injection, without manometry study. The case was discussed with admitting physician, Dr. Merissa Mclain. [id number]/[facility] #: [id number] [place]
[2017-10-18 05:20] LABS: EGFR Non-African American 34.7 (>60)
[2017-10-18 08:33] VITALS: BP 118/51
[2017-10-18] MEDS ORDERED: Pantoprazole IV* 40 MG IV SCH (09:00)
[2017-10-18] MEDS ORDERED: Fluticasone NASAL SPRAY 50MCG* 16 gm SPRAY BTL BOTH NARES SCH (09:00)
--- NOTE | 2017-10-19 08:12 | DS ---
CC: Guicho Castle MD; Dr. Lange; Stephany Cobos NP. * DISCHARGE SUMMARY: DATE OF ADMISSION: 10/17/17. DATE OF DISCHARGE: 10/18/17. PRIMARY CARE PROVIDER: Stephany Cobos NP. DISCHARGE DIAGNOSIS: Dysphagia likely due to suspected achalasia. SECONDARY DIAGNOSES: 1. History of diabetes. 2. History of hypertension. 3. History of chronic kidney disease stage 3. 4. History of rosacea. Patient used to be on doxycycline every other day. Was held at discharge. 5. History of peripheral neuropathy. 6. History of carotid endarterectomy. MEDICATIONS AT DISCHARGE: Include: 1. Amlodipine/benazepril 5/10 mg daily. 2. Aspirin 325 mg daily. 3. Lipitor 10 mg daily. 4. Invokana 300 mg daily. 5. Zyrtec 10 mg daily. 6. Vitamin D3 at 1000 units daily. 7. Voltaren gel on a p.r.n. basis. 8. Finasteride 5 mg daily. 9. Flonase nasal spray 2 sprays both nostrils daily. 10. Hydrocodone/acetaminophen on p.r.n. basis. 11. Victoza 1.2 mg subcutaneously daily. 12. Antivert on a p.r.n. basis at 12.5 mg at bedtime. 13. Nitroglycerin on a p.r.n. basis. 14. Omeprazole 40 mg daily. 15. Zofran on a p.r.n. basis. 16. VESIcare 2.5 mg daily. 17. Flomax 0.4 mg daily. 18. Benefiber one pocket daily. 19. Insulin glargine 40 to 60 units subcutaneously daily. LABORATORY DATA: Studies performed during the hospital stay included: On 10/18, sodium 137, potassium 4.7, chloride 108, carbon dioxide 21, BUN 46, creatinine 1.85. CBC: White blood cell count 15.6, hemoglobin 10.8, hematocrit 32, platelets 176. Esophageal x-ray documented on 10/17/17. Impression: "The esophagus is diffusely distended with decreased peristalsis and slow clearing." There are multiple intraluminal filling defects likely representing food debris, was a limited study. The possibility of an underlying mass could not be excluded. Recommend endoscopy for further evaluation." CONSULTATION DURING THE HOSPITAL STAY: Include, Dr. Castle from Gastroenterology. HOSPITALIZATION COURSE: Krzysztof Irvin is an 78-year-old male with a history of status post esophageal dilation for stricture in June 2017 who presented complaining of problems with swallowing and regurgitation after a full meal at dinner on 10/16/17. Patient was brought in for an overnight observation. An esophageal x-ray was performed, which showed decreased peristalsis and retained food. Dr. Castle saw patient in consultation and suspected achalasia. Patient was restarted on soft diet and he tolerated it well with no issues with regurgitation. Dr. Castle's suspicion is that the patient has achalasia. Unfortunately, we cannot performed manometry at our facility, but patient can have a manometry performed as outpatient. At this point, patient has been tolerating soft diet and he was educated about the continuation of soft diet with drinking plenty of liquids in between meals. Patient was also recommended about the need of small, frequent meals. Dr. Castle recommended for the patient to be discharged after his soft diet is tolerated for a followup appointment with Gastroenterology next week for manometry study. Once manometry is performed, patient will likely require an endoscopy and Botox injection as per Dr. Castle. The patient with history of rosacea and he had been using doxycycline every other day for a couple of years now. Doxycycline was held as the patient's discharge, but the remaining medications are unchanged and to be continued. PHYSICAL EXAMINATION AT THE TIME OF DISCHARGE: Blood pressure 136/53, heart rate of 73 and regular, respiratory rate of 20, oxygen saturation 92% on room air, temperature 97.4. General: The patient is an 86-year-old obese male who is in no acute distress. Alert, awake, and oriented x3. HEENT: Head atraumatic, normocephalic. Eyes: Pupils are equal and reactive to light and accommodation. Oral mucosa moist. Neck: Supple. No JVD. No bruits bilaterally. Cardiovascular: Regular rate and rhythm. No murmur. Respiratory : Fine crackles at bilateral bases. Otherwise clear. Abdomen: Distended, soft, nontender. Bowel sounds present in all 4 quadrants. Extremities: There is no edema. Pulses are 2+ bilaterally. There are no clubbing or cyanosis. Neuro evaluation is nonfocal. Cranial nerves II through XII are grossly intact. Motor strength is 5/5 bilaterally. Patient is hard of hearing. FOLLOWUP: Please note that this is a short summary of patient's hospitalization. Please refer to further medical records for details. [id number]/[facility] #: [id number] MTDD
--- NOTE | 2017-10-19 08:34 | ED ---
Humberto Norton Thomas, scribed for Darinel Villalta MD on 10/17/17 at 1130 . Complex/Multi-Sys Presentation - HPI Summary HPI Summary: The patient is an 86 year old male returning to the emergency room after he was discharged less than one hour ago. He presents with chest pressure and epigastric pain. When the patient was in the waiting room awaiting transport away from the department, he developed nausea and vomiting when having a sip of water. His chest pain has returned. He has a history of esophageal stricture. - History Of Current Complaint Chief Complaint: EDGeneral Time Seen by Provider: 10/17/17 11:12 Hx Obtained From: Patient Onset/Duration: Still Present Timing: Constant Severity Initially: Moderate Location: Pain At: - chest Alleviating Factor(s): Nothing Associated Signs And Symptoms: Positive: Other - chest pressure, epigastric pain , nausea, vomiting - Allergies/Home Medications Allergies/Adverse Reactions: Allergies Allergy/AdvReac Type Severity Reaction Status Date / Time MS Aloe [Aloe] Allergy Severe Rash Verified 12/19/15 18:52 MS Bacitracin Allergy Intermediate Rash Verified 12/19/15 18:52 [From Neosporin] MS Neomycin [From Neosporin] Allergy Intermediate Rash Verified 12/19/15 18:52 MS Penicillins [Penicillins] Allergy Intermediate Rash Verified 12/19/15 18:52 MS Polymyxin B Allergy Intermediate Rash Verified 12/19/15 18:52 [From Neosporin] PMH/Surg Hx/FS Hx/Imm Hx Endocrine/Hematology History: Reports: Hx Diabetes Denies: Hx Thyroid Disease Cardiovascular History: Reports: Hx Hypertension, Hx Myocardial Infarction Denies: Hx Atrial Fibrillation, Hx Pacemaker/ICD Respiratory History: Denies: Hx Asthma, Hx Chronic Obstructive Pulmonary Disease (COPD) GI History: Denies: Hx Ulcer History: Denies: Hx Dialysis, Hx Renal Disease Musculoskeletal History: Reports: Hx Arthritis - HIPS, HANDS Sensory History: Reports: Hx Cataracts - BILATERAL, Hx Contacts or Glasses - GLASSES, Hx Hearing Aid Opthamlomology History: Reports: Hx Cataracts - BILATERAL, Hx Contacts or Glasses - GLASSES Psychiatric History: Denies: Hx Panic Disorder - Surgical History Surgery Procedure, Year, and Place: CAROTID ARTERY SURGERY(patched 2010 in outside op reports)[place], CATARACTS BILATERAL Hx Anesthesia Reactions: No Infectious Disease History: No Infectious Disease History: Reports: Hx Shingles - long time ago Denies: Hx Clostridium Difficile, Hx Hepatitis, Hx Human Immunodeficiency Virus (HIV), Hx of Known/Suspected MRSA, Traveled Outside the [place] in Last 30 Days - Family History Known Family History: Positive: Cardiac Disease, Hypertension, Other - no FHX of malignant hyperthermia or anesthesia reaction - Social History Alcohol Use: Rare Alcohol Amount: MAYBE 1-2/YR Substance Use Type: Reports: None Smoking Status (MU): Former Smoker Type: Cigarettes Amount Used/How Often: 1PPD 40 YRS Have You Smoked in the Last Year: No Review of Systems Negative: Fever Positive: Chest Pain Positive: Abdominal Pain - epigastric, Vomiting, Nausea All Other Systems Reviewed And Are Negative: Yes Physical Exam - Summary Physical Exam Summary: VITAL SIGNS: Reviewed. GENERAL: Patient is an elderly, fragile, obese male who is lying comfortable in the stretcher. He is not in any distress. Patient is not in any acute respiratory distress. HEAD AND FACE: No signs of trauma. No ecchymosis, hematomas or skull depressions. No sinus tenderness. EYES: PERRLA, EOMI x 2, No injected conjunctiva, no nystagmus. EARS: Hearing grossly intact. Ear canals and tympanic membranes are within normal limits. MOUTH: Oropharynx within normal limits. NECK: Supple, trachea is midline, no adenopathy, no JVD, no carotid bruit, no c- spine tenderness, neck with full ROM. CHEST: Symmetric, no tenderness at palpation LUNGS: Clear to auscultation bilaterally. No wheezing or crackles. CVS: Regular rate and rhythm, S1 and S2 present, no murmurs or gallops appreciated. ABDOMEN: Soft, non-tender. No signs of distention. No rebound no guarding, and no masses palpated. Bowel sounds are normal. EXTREMITIES: FROM in all major joints, no edema, no cyanosis or clubbing. NEURO: Alert and oriented x 3. No acute neurological deficits. Speech is normal and follows commands. SKIN: Dry and warm Vital Signs On Initial Exam: Initial Vitals Temp Pulse Resp BP Pulse Ox 97 F 111 22 122/68 90 10/17/17 11:02 10/17/17 11:02 10/17/17 11:02 10/17/17 11:02 10/17/17 11:02 Diagnostics - Vital Signs Vital Signs Temp Pulse Resp BP Pulse Ox 10/17/17 11:02 97 F 111 22 122/68 90 - Laboratory Lab Statement: Any lab studies that have been ordered have been reviewed, and results considered in the medical decision making process. - Radiology Esophagus XR Xray Interpretation: No Acute Changes - THE ESOPHAGUS IS DIFFUSELY DISTENDED WITH DECREASED PERISTALSIS AND SLOW CLEARING. THERE ARE MULTIPLE INTRALUMINAL FILLING DEFECTS LIKELY REPRESENTING FOOD DEBRIS WHICH LIMITS THE STUDY. THE POSSIBILITY OF AN UNDERLYING MASS CANNOT BE EXCLUDED. RECOMMEND ENDOSCOPY FOR FURTHER EVALUATION. Dr. Villalta has reviewed this report. Radiology Interpretation Completed By: Clinton Angulo Multi-Symp Course/Dx Assessment/Plan: The patient is an 86 year old male returning to the emergency room after he was discharged less than one hour ago. He presents with chest pressure and epigastric pain. When the patient was in the waiting room awaiting transport away from the department, he developed nausea and vomiting when having a sip of water. His chest pain has returned. He has a history of esophageal stricture. Since the patient returned complaining of the same chest discomfort after trying to drink a cup of water, I discussed the case with Dr. Maier, and he recommends admission at this time. He will consult for the patient. He requests an esophagram. I discussed the case with Dr. Mclain, who accepts the patient for admission. The patient is hemodynamically stable and alert and oriented x3. - Diagnoses Provider Diagnoses: Chest pain, Difficulty swallowing - Physician Notifications Discussed Care Of Patient With: Dr. Maier Time Discussed With Above Provider: 11:25 Instructed by Provider To: Other - Dr. Maier, GI, will consult for the case. I consulted with Dr. Mclain, hospitalist, who will admit the patient. Discharge - Discharge Plan Condition: Fair Disposition: ADMITTED TO [facility] documentation as recorded by the Humberto zaragoza Thomas accurately reflects the service I personally performed and the decisions made by me, Darinel Villatla MD.
== END 2017-10-18 11:04 | disposition home or self-care (01) ==
LOC: ED 10:58 → MEDTELE 13:22
PROVIDERS: ADMIT Internal Medicine; ATTEND Internal Medicine
DX: R13.10 Dysphagia, unspecified (principal); R10.13 Epigastric pain; R11.2 Nausea with vomiting, unspecified; R07.9 Chest pain, unspecified; Z87.891 Personal history of nicotine dependence; Z86.79 Personal history of other diseases of the circulatory system; Z79.82 Long term (current) use of aspirin; Z87.448 Personal history of other diseases of urinary system; L71.8 Other rosacea; Z88.0 Allergy status to penicillin
CPT/HCPCS: 36415; 74220; 80048; 84484; 85025; 96365; 96366; 99284; G0378; J1644

== ENCOUNTER 2017-12-25 12:43 | Day surgery (SDC) | payer MEDICARE ==
[~2017-12-25 12:43] MED LIST: Acetaminophen TAB* 325 MG PO PRN; Buffered Lidocaine 0.9% SYRIN* 5 ML/SYR SYRINGE INTRADERM ONE
[2017-12-25] MEDS ORDERED: Bacitracin OPHTH.OINT* 3.5 GM ONE (12:49)
[2017-12-25] MEDS ORDERED: BSS OPTH.SOL* BTL ONE (12:50)
[2017-12-25] MEDS ORDERED: Povidone Iodine 5% OPTH* 30 ML BTL ONE (12:50)
[2017-12-25] MEDS ORDERED: Lidocaine 2% EPI 1:200000 MPF*10-20 ML VIAL ONE (12:51)
[2017-12-25] MEDS ORDERED: Proparacaine 0.5% OPHTH.SOL* 15 ML BTL ONE (13:11)
[2017-12-25] MEDS ORDERED: Midazolam* 1 MG/ML 2 ML VIAL (2 MG) ONE (15:19)
[2017-12-25] MEDS ORDERED: fentaNYL* 50 MCG/ML 2 ML VIAL (100 MCG VIAL) ONE (15:29)
[2017-12-25 16:32] VITALS: BP 134/53
--- NOTE | 2017-12-25 22:51 | OP ---
DATE OF OPERATION: 12/25/2017 [facility] DATE OF : [birth year] SURGEON: Beto Lopes M.D. ANESTHESIA: Local with MAC. COMPLICATIONS: None. 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 POSTOPERATIVE DIAGNOSIS: Ectropion cicatricial left lower lid. OPERATIVE PROCEDURE: Ectropion repair of left lower eyelid with rotational skin graft in the left upper lid. DESCRIPTION OF PROCEDURE: The patient was prepped and draped in the usual sterile fashion. Successful traction suture placed through the inferior lid margin. The eye elevated. A subciliary incision was made with the No. 15 blade. Dissection carried inferiorly subcutaneously to free the skin from all scar tissue. A wedge excision about 4 mm of lid was excised using the plastic scissors. Hemostasis was achieved throughout with bipolar cautery. The lid margin reapproximated with two 6- 0 Vicryl sutures and the margin closed with 6- 0 silk closure. There is inadequate coverage of skin laterally because of the cicatricial changes, so rotational skin graft was prepared from the left upper lid. There is an eyelid incision along the upper lid crease with the No.15 blade and then approximately 4 mm tall strip of skin was excised. Hemostasis again achieved with bipolar cautery. The skin graft was sutured in place in the left lower lids and upper eyelid skin closed. All this was done with 6-0 interrupted and running sutures, topical bacitracin ointment was placed. The eye was tightly patched. [id number]/[facility] #: [id number] [facility]
== END 2017-12-25 16:45 | disposition home or self-care (01) ==
LOC: OREAST 12:43
PROVIDERS: ATTEND Specialist
DX: H02.135 Senile ectropion of left lower eyelid (principal); H35.3131 Nonexudative age-related macular degeneration, bilateral, early dry stage; E11.3293 Type 2 diabetes mellitus with mild nonproliferative diabetic retinopathy without macular edema, bilateral; Z87.891 Personal history of nicotine dependence; I10 Essential (primary) hypertension; I25.10 Atherosclerotic heart disease of native coronary artery without angina pectoris; E78.5 Hyperlipidemia, unspecified; I65.29 Occlusion and stenosis of unspecified carotid artery; Z79.4 Long term (current) use of insulin
CPT/HCPCS: A9270-GY; J2250; J3010

== ENCOUNTER 2018-04-16 12:15 | Emergency (ER) | payer MEDICARE ==
--- NOTE | 2018-04-16 12:34 | ED ---
Syncope/Near Syncope - HPI Summary HPI Summary: This is scribe Hernan Murphy documenting for attending Dr. Pawan Infante This patient is an 87 year old M presenting to [facility] with a chief complaint of fall since 0600. Pt states that he felt dizzy, PMHx vertigo. Pt notes that he went to the bathroom, urinated, brushed his teeth, and then started to feel dizzy. He endorses the hallway felt narrow, and then he collapsed. Pt denies LOC, current vertigo sx. Pt endorses current left lateral chest pain. His family checked pts blood glucose and found it to be 108. PMHx [place] in 1992, [place], hearing aids. I, Dr. Villalta personally performed the services described in this documentation as scribed in my presence and it is both accurate and complete. - History Of Current Complaint Chief Complaint: EDChestWallPain Time Seen by Provider: 04/16/18 12:16 Hx Obtained From: Patient Onset/Duration: Sudden Onset, Lasting Minutes, Resolved Timing: Constant Context: Unwitnessed Activity At Onset: Exertion - walking Associated Head Trauma: No Aggravating Factor(s): Nothing Alleviating Factor(s): Rest Associated Signs And Symptoms: Chest Pain - left lateral, Dizzy, Lightheadedness Related History: Similar Episode/Dx as - PMHx vertigo Frequency: Episodes x___ - 1 - Allergies/Home Medications Allergies/Adverse Reactions: Allergies Allergy/AdvReac Type Severity Reaction Status Date / Time aloe Allergy Severe Rash Verified 04/16/18 12:27 bacitracin Allergy Intermediate Rash Verified 04/16/18 12:27 [From Neosporin ([id number])] neomycin Allergy Intermediate Rash Verified 04/16/18 12:27 [From Neosporin ([id number])] Penicillins Allergy Intermediate Rash Verified 04/16/18 12:27 polymyxin B Allergy Intermediate Rash Verified 04/16/18 12:27 [From Neosporin ([id number])] aloe vera Allergy Rash Verified 04/16/18 12:27 PMH/Surg Hx/FS Hx/Imm Hx Endocrine/Hematology History: Reports: Hx Diabetes - ORAL & INSULIN Denies: Hx Thyroid Disease Cardiovascular History: Reports: Hx Angina, Hx Hypertension, Hx Myocardial Infarction - 1992 Denies: Hx Atrial Fibrillation, Hx Pacemaker/ICD Comment Only: Other Cardiovascular Problems/Disorders - FOLLOWED BY DR SALGADO Respiratory History: Denies: Hx Asthma, Hx Chronic Obstructive Pulmonary Disease (COPD) GI History: Denies: Hx Ulcer History: Denies: Hx Dialysis, Hx Renal Disease Musculoskeletal History: Reports: Hx Arthritis - HIPS, KNEES,HANDS Sensory History: Reports: Hx Cataracts - BILATERAL, Hx Contacts or Glasses - GLASSES, Hx Hearing Aid - BILATERAL Denies: Hx Legally Blind Opthamlomology History: Reports: Hx Cataracts - BILATERAL, Hx Contacts or Glasses - GLASSES Denies: Hx Legally Blind EENT History: Reports: Hx Hearing Aid Neurological History: Reports: 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 1939 TONSIL[facility],. 2013 CATARACTS BILATERAL [facility]. 2000sNOSE SKIN CANCER REMOVED ZOE Hx Anesthesia Reactions: No Infectious Disease History: No Infectious Disease History: Reports: Hx Shingles - long time ago Denies: Hx Clostridium Difficile, Hx Hepatitis, Hx Human Immunodeficiency Virus (HIV), Hx of Known/Suspected MRSA, Traveled Outside the [place] in Last 30 Days - Family History Known Family History: Positive: Cardiac Disease, Hypertension, Other - no FHX of malignant hyperthermia or anesthesia reaction - Social History Occupation: Retired Alcohol Use: Rare Alcohol Amount: MAYBE 1-2/YR Substance Use Type: Reports: None Hx Tobacco Use: Yes Smoking Status (MU): Former Smoker Type: Cigarettes Amount Used/How Often: 1PPD 40 YRS Have You Smoked in the Last Year: No Review of Systems Negative: Fever Positive: Chest Pain - left lateral musculoskeletal Positive: no symptoms reported Positive: Myalgia - left-lateral chest Neurological: Other - dizziness/vertigo attack Positive: Syncope - near syncope All Other Systems Reviewed And Are Negative: Yes Physical Exam - Summary Physical Exam Summary: VITAL SIGNS: Reviewed. GENERAL: Patient is an obese male who is lying comfortable in the stretcher. Patient is not in any acute respiratory distress. HEAD AND FACE: No signs of trauma. No ecchymosis, hematomas or skull depressions. No sinus tenderness. EYES: PERRLA, EOMI x 2, No injected conjunctiva, no nystagmus. EARS: Hearing grossly intact. Ear canals and tympanic membranes are within normal limits. MOUTH: Oropharynx within normal limits. NECK: Supple, trachea is midline, no adenopathy, no JVD, no carotid bruit, no c- spine tenderness, neck with full ROM. CHEST: Symmetric, Tenderness left-sided ribcage in mid-axillary line around 8th to 10th rib LUNGS: Clear to auscultation bilaterally. No wheezing or crackles. CVS: Regular rate and rhythm, S1 and S2 present, no murmurs or gallops appreciated. ABDOMEN: Soft, non-tender. No signs of distention. No rebound, no guarding, and no masses palpated. Bowel sounds are normal. EXTREMITIES: FROM in all major joints, no edema, no cyanosis or clubbing. NEURO: Alert and oriented x 3. No acute neurological deficits. Speech is normal and follows commands. SKIN: Dry and warm Triage Information Reviewed: Yes Vital Signs On Initial Exam: Initial Vitals Temp Pulse Resp BP Pulse Ox 98.5 F 91 19 159/72 96 04/16/18 12:23 04/16/18 12:23 04/16/18 12:23 04/16/18 12:23 04/16/18 12:23 Vital Signs Reviewed: Yes Diagnostics - Vital Signs Vital Signs Temp Pulse Resp BP Pulse Ox 04/16/18 12:23 98.5 F 91 19 159/72 96 - Laboratory Lab Statement: Any lab studies that have been ordered have been reviewed, and results considered in the medical decision making process. - Radiology left ribs Xray Interpretation: No Acute Changes Radiology Interpretation Completed By: Radiologist - No fx of the left ribs is noted. Dr. Villalta has reviewed this report. Re-Evaluation - Re-Evaluation First Eval Re-Evaluation Time: 14:53 Change: Unchanged Comment: Discussed negative XR, discharge with pt and his family. Course/Dx Assessment/Plan: This patient is an 87-year-old male who presented to the emergency room via ambulance with a chief complaint of left-sided rib cage pain. Patient reports that he has history of vertigo and this morning she sustained a fall while he was having an episode of vertigo. The vertigo has subsided however the patient has left rib pain. X-ray of the ribs and negative for an acute fracture dislocation. In the ED course the patient was given Higginson for pain and his symptoms improved. At this point the patient is ambulating he is eating and drinking and the patient will be discharged home with follow-up with primary care physician. He was instructed to return to the emergency room if patient develops any other chest pain, shortness of breath, palpitations, nausea vomiting or fevers. The patient understands and agrees. At this time the patient is hemodynamically stable alert and oriented 3. - Diagnoses Provider Diagnoses: Rib pain Discharge - Sign-Out/Discharge Documenting (check all that apply): Patient Departure - discharge - Discharge Plan Condition: Stable Disposition: HOME Prescriptions: HYDROcodone/ACETAMIN 5-325 MG* [Higginson 5-325 TAB*] 1 tab PO Q8H PRN #10 tab MDD 3 PRN Reason: Pain Patient Education Materials: Rib Contusion (ED) Referrals: Stephany Cobos [Primary Care Provider] - 3 Days Additional Instructions: Return to the emergency department for any new or worsening symptoms. - Billing Disposition and Condition Condition: STABLE Disposition: Home
--- NOTE | 2018-04-16 14:26 | RAD ---
. INDICATION: Left rib pain after fall. 4 views of left ribs and a dual energy PA view of the chest were obtained. No fracture of the left ribs is identified. No pneumothorax is noted. Left basilar atelectasis is noted. PA view of the chest demonstrate no evidence of pneumothorax. IMPRESSION: No fracture of the left ribs is noted.
[2018-04-16] MEDS ORDERED: HYDROcodone/ACETAMIN 5-325 MG* 1 TAB PO ONE (14:41)
[2018-04-16 15:30] VITALS: BP 153/86
== END 2018-04-16 15:30 | disposition home or self-care (01) ==
LOC: ED 12:15
DX: R07.81 Pleurodynia (principal); W19.XXXA Unspecified fall, initial encounter; Y92.008 Other place in unspecified non-institutional (private) residence as the place of occurrence of the external cause; R42 Dizziness and giddiness; I25.2 Old myocardial infarction; E11.9 Type 2 diabetes mellitus without complications; Z79.84 Long term (current) use of oral hypoglycemic drugs; Z79.4 Long term (current) use of insulin; H91.90 Unspecified hearing loss, unspecified ear; Z97.4 Presence of external hearing-aid; Z87.891 Personal history of nicotine dependence; Z88.3 Allergy status to other anti-infective agents; Z88.0 Allergy status to penicillin
CPT/HCPCS: 99283

== ENCOUNTER 2018-08-07 18:31 | Emergency (ER) | payer MEDICARE ==
[2018-08-07 18:44] VITALS: BP 146/62
--- NOTE | 2018-08-07 19:31 | ED ---
Head Injury - HPI Summary HPI Summary: Patient is an 87-year-old male who presents to emergency department for evaluation after a fall that occurred yesterday. Patient states he bent over to sheepskin pickler his glucometer when he lost his balance and fell forward striking his right face-off ground. Patient denies loss of consciousness. Patient denies prior chest pain, shortness of breath, lightheadedness, dizziness. Family states that patient's eye became red after fall and today around his right eye is swollen and bruised. Patient denies any pain. He denies visual changes. He is not anticoagulated. Symptoms are moderate in severity. No current modifying factors. - History Of Current Complaint Chief Complaint: UCHeadInjury Stated Complaint: FACIAL INJURY Time Seen by Provider: 08/07/18 18:50 Hx Obtained From: Patient Pain Intensity: 0 - Allergies/Home Medications Allergies/Adverse Reactions: Allergies Allergy/AdvReac Type Severity Reaction Status Date / Time aloe Allergy Severe Rash Verified 08/07/18 18:45 bacitracin Allergy Intermediate Rash Verified 08/07/18 18:45 [From Neosporin ([id number])] neomycin Allergy Intermediate Rash Verified 08/07/18 18:45 [From Neosporin ([id number])] Penicillins Allergy Intermediate Rash Verified 08/07/18 18:45 polymyxin B Allergy Intermediate Rash Verified 08/07/18 18:45 [From Neosporin ([id number])] aloe vera Allergy Rash Verified 08/07/18 18:45 Home Medications: Home Medications Cholecalciferol TAB* [Vitamin D TAB*] 1,000 unit PO DAILY 08/07/18 [History Confirmed 08/07/18] Diclofenac 1% GEL (NF) [Voltaren 1% GEL (NF)] 1 applic .SEE ORDER DAILY PRN [History Confirmed 08/07/18] Doxycycline Hyclate [Morgidox [id number]] 100 mg PO EVERY OTHER DAY 08/07/18 [ History Confirmed 08/07/18] Nitroglycerin TAB 0.4 MG* 0.4 mg SL Q5M PRN 08/07/18 [History Confirmed 08/07/18 ] PMH/Surg Hx/FS Hx/Imm Hx Previously Healthy: Yes Endocrine/Hematology History: Reports: Hx Diabetes - ORAL & INSULIN Denies: Hx Thyroid Disease Cardiovascular History: Reports: Hx Angina, Hx Hypertension, Hx Myocardial Infarction - 1992 Denies: Hx Atrial Fibrillation, Hx Pacemaker/ICD Comment Only: Other Cardiovascular Problems/Disorders - FOLLOWED BY DR SALGADO Respiratory History: Denies: Hx Asthma, Hx Chronic Obstructive Pulmonary Disease (COPD) GI History: Denies: Hx Ulcer History: Denies: Hx Dialysis, Hx Renal Disease Musculoskeletal History: Reports: Hx Arthritis - HIPS, KNEES,HANDS Sensory History: Reports: Hx Cataracts - BILATERAL, Hx Contacts or Glasses - GLASSES, Hx Hearing Aid Denies: Hx Legally Blind Opthamlomology History: Reports: Hx Cataracts - BILATERAL, Hx Contacts or Glasses - GLASSES Denies: Hx Legally Blind Neurological History: Reports: 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 1939 TONSILS,. 2013 CATARACTS BILATERAL [facility]. NOSE SKIN CANCER REMOVED ZOE Hx Anesthesia Reactions: No Infectious Disease History: No Infectious Disease History: Reports: Hx Shingles - long time ago Denies: Hx Clostridium Difficile, Hx Hepatitis, Hx Human Immunodeficiency Virus (HIV), Hx of Known/Suspected MRSA, Traveled Outside the [place] in Last 30 Days - Family History Known Family History: Positive: Cardiac Disease, Hypertension, Other - no FHX of malignant hyperthermia or anesthesia reaction - Social History Occupation: Retired Lives: With Family Alcohol Use: Rare Alcohol Amount: MAYBE 1-2/YR Substance Use Type: Reports: None Hx Tobacco Use: Yes Smoking Status (MU): Former Smoker Type: Cigarettes Amount Used/How Often: 1PPD 40 YRS Have You Smoked in the Last Year: No Review of Systems Positive: Other - Painless redness to right eye. Negative: Photophobia, Blurred Vision, Diplopia, Drainage Negative: Epistaxis, Nasal Discharge Positive: Bruising Neurological: Negative Negative: Headache, Weakness, Paresthesia, Numbness, Syncope, Slurred Speech All Other Systems Reviewed And Are Negative: Yes Physical Exam Triage Information Reviewed: Yes Vital Signs On Initial Exam: Initial Vitals Temp Pulse Resp BP Pulse Ox 98.7 F 90 18 146/62 94 08/07/18 18:37 08/07/18 18:37 08/07/18 18:37 08/07/18 18:37 08/07/18 18:37 Vital Signs Reviewed: Yes Appearance: Positive: Well-Appearing - Patient sitting in chair in no acute distress. Interactive and well-appearing. Family present. Skin: Positive: Warm, Dry Head/Face: Positive: Other - Mild ecchymosis, edema and pain noted over the right maxillary region with superficial abrasion. Eyes: Positive: EOMI, LEO, Other: - Left eye is unremarkable. Sclera to the right thigh is diffusely erythematous. Anterior chamber is clear without blood. Extraocular muscles are intact without pain or entrapment. ENT: Positive: TMs normal. Negative: Nasal drainage Neck: Positive: Supple, Nontender - No midline tenderness Musculoskeletal: Positive: Normal, Strength/ROM Intact Neurological: Positive: Alert, Oriented to Person Place, Time, CN Intact II-III , Normal Gait Psychiatric: Positive: Affect/Mood Appropriate AVPU Assessment: Alert - [place] Coma Scale Best Eye Response: 4 - Spontaneous Best Motor Response: 6 - Obeys Commands Best Verbal Response: 5 - Oriented Coma Scale Total: 15 Diagnostics - Vital Signs Vital Signs Temp Pulse Resp BP Pulse Ox 08/07/18 18:37 98.7 F 90 18 146/62 94 - Laboratory Lab Statement: Any lab studies that have been ordered have been reviewed, and results considered in the medical decision making process. Discharge - Discharge Plan Condition: Good Disposition: HOME Patient Education Materials: Subconjunctival Hemorrhage (ED), Facial Contusion (ED) Referrals: Stephany Cobos [Primary Care Provider] - Additional Instructions: Schedule a close follow up appointment with your PCP and eye doctor Apply ice to face and eye intermittently Can take tylenol if for pain as directed Go to ER for vision changes, severe headache, or if concerned - Billing Disposition and Condition Condition: GOOD Disposition: Home
--- NOTE | 2018-08-07 22:26 | UC ---
Head Injury HPI - HPI Summary HPI Summary: Patient is an 87-year-old male who presents to the for evaluation after a fall that occurred yesterday. 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 Patient denies loss of consciousness. Patient denies prior chest pain, shortness of breath, lightheadedness, dizziness. Family states that patient's eye became red after fall and today around his right eye is swollen and bruised. Patient denies any pain. He denies visual changes. He is not anticoagulated. Symptoms are moderate in severity. No current modifying factors. - History Of Current Complaint Chief Complaint: UCHeadInjury Stated Complaint: FACIAL INJURY Time Seen by Provider: 08/07/18 18:50 Hx Obtained From: Patient Pain Intensity: 0 Pain Scale Used: 0-10 Numeric - Allergies/Home Medications Allergies/Adverse Reactions: Allergies Allergy/AdvReac Type Severity Reaction Status Date / Time aloe Allergy Severe Rash Verified 08/07/18 18:45 bacitracin Allergy Intermediate Rash Verified 08/07/18 18:45 [From Neosporin ([id number])] neomycin Allergy Intermediate Rash Verified 08/07/18 18:45 [From Neosporin ([id number])] Penicillins Allergy Intermediate Rash Verified 08/07/18 18:45 polymyxin B Allergy Intermediate Rash Verified 08/07/18 18:45 [From Neosporin ([id number])] aloe vera Allergy Rash Verified 08/07/18 18:45 Home Medications: Home Medications Cholecalciferol TAB* [Vitamin D TAB*] 1,000 unit PO DAILY 08/07/18 [History Confirmed 08/07/18] Diclofenac 1% GEL (NF) [Voltaren 1% GEL (NF)] 1 applic .SEE ORDER DAILY PRN [History Confirmed 08/07/18] Doxycycline Hyclate [Morgidox [id number]] 100 mg PO EVERY OTHER DAY 08/07/18 [ History Confirmed 08/07/18] Nitroglycerin TAB 0.4 MG* 0.4 mg SL Q5M PRN 08/07/18 [History Confirmed 08/07/18 ] PMH/Surg Hx/FS Hx/Imm Hx Previously Healthy: Yes - Surgical History Surgical History: Yes Surgery Procedure, Year, and Place: 2010 CAROTID ARTERY SURGERY(patched in outside op reports) [facility]. 1939 TONSILS,. 2014 CATARACTS BILATERAL [facility]. 2000sNOSE SKIN CANCER REMOVED [facility] - Family History Known Family History: Positive: Cardiac Disease, Hypertension, Other - no FHX of malignant hyperthermia or anesthesia reaction - Social History Occupation: Retired Lives: With Family Alcohol Use: Rare Alcohol Amount: MAYBE 1-2/YR Substance Use Type: None Smoking Status (MU): Former Smoker Type: Cigarettes Amount Used/How Often: 1PPD 40 YRS Have You Smoked in the Last Year: No When Did the Patient Quit Smoking/Using Tobacco: 1975 - Immunization History Most Recent Tetanus Shot: unsure Review of Systems All Other Systems Reviewed And Are Negative: Yes Skin: Positive: Bruising Eyes: Positive: Eye Redness. Negative: Blurred Vision, Diplopia, Drainage, Photophobia ENT: Negative: Epistaxis Neurovascular: Positive: Negative Musculoskeletal: Positive: Negative Neurological: Positive: Negative. Negative: Headache, Weakness, Paresthesia, Numbness Is Patient Immunocompromised?: No Physical Exam Triage Information Reviewed: Yes Appearance: Well-Appearing - Pt. sitting in chair in NAD. Pleasant and interactive. Family present., Other: - Mild ecchymosis, edema and pain noted over the right maxillary region with superficial abrasion. Vital Signs: Initial Vital Signs Temp 98.7 F 08/07/18 18:37 Pulse 90 08/07/18 18:37 Resp 18 08/07/18 18:37 BP 146/62 08/07/18 18:37 Pulse Ox 94 08/07/18 18:37 Vital Signs Reviewed: Yes Eyes: Positive: Other: - Left eye is unremarkable. Sclera to the right thigh is diffusely erythematous. Anterior chamber is clear without blood. Extraocular muscles are intact without pain or entrapment. ENT: Positive: TMs normal. Negative: Nasal drainage Neck: Positive: Supple, Nontender - No midline tenderness Musculoskeletal Exam: Normal Neurological Exam: Normal Neurological: Positive: Alert Psychological Exam: Normal Head Injury Course/Dx - Course Course Of Treatment: Presenting for valuation a facial injury after a mechanical fall that occurred yesterday. Vital signs are stable. Patient is well-appearing without neurological deficits. Pt. has no real complaints of pain, however exam he does have swelling bruising and mild tenderness over the right aspect of his face. Given age and injury will obtain ct scan of head and face to r/o bleeding, fx. CT brain negative for acute findings. CT face shows soft tissue edema without fx. Readings per radiology. Patient does have a large symptoms subconjunctival hemorrhage on exam. Visual acuity is normal as documented today. Patient has no visual complaints. Results were discussed. Pt. will f.u with his eye doctor and PCP. Advised to go to the ER for visual changes, eye drainage, severe h/a or if concerned. Pt. and family understand and agree with plan. - Differential Dx/Diagnosis Differential Diagnosis/HQI/PQRI: Cerebral Contusion, Concussion Without LOC, Contusion, Hematoma, Intracranial Bleed, Orbital Fracture, Skull Fracture, Zygomatic Fracture Provider Diagnosis: Facial contusion, Subconjunctival hemorrhage Discharge - Sign-Out/Discharge Documenting (check all that apply): Patient Departure All imaging exams completed and their final reports reviewed: Yes - Discharge Plan Condition: Good Disposition: HOME Patient Education Materials: Subconjunctival Hemorrhage (ED), Facial Contusion (ED) Referrals: Stephany Cobos [Primary Care Provider] - Additional Instructions: Schedule a close follow up appointment with your PCP and eye doctor Apply ice to face and eye intermittently Can take tylenol if for pain as directed Go to ER for vision changes, severe headache, or if concerned - Billing Disposition and Condition Condition: GOOD Disposition: Home
== END 2018-08-07 20:40 | disposition home or self-care (01) ==
LOC: UCEAST 18:31
DX: S00.83XA Contusion of other part of head, initial encounter (principal); W18.30XA Fall on same level, unspecified, initial encounter; Y92.9 Unspecified place or not applicable; H11.31 Conjunctival hemorrhage, right eye; E11.9 Type 2 diabetes mellitus without complications; Z79.4 Long term (current) use of insulin; Z79.84 Long term (current) use of oral hypoglycemic drugs; Z88.3 Allergy status to other anti-infective agents; Z88.0 Allergy status to penicillin; Z87.891 Personal history of nicotine dependence
CPT/HCPCS: 70450; 70486; 99201; G0463